=== PATIENT | male | born 1990 | race Caucasian/White ===

== ENCOUNTER 2016-09-02 07:20 | Emergency (ER) | payer OTHER | END 2016-09-02 08:45 | disposition home or self-care (01) | LOC: ER1 07:20 | DX: S02.5XXA Fracture of tooth (traumatic), initial encounter for closed fracture (principal); S01.511A Laceration without foreign body of lip, initial encounter; F17.200 Nicotine dependence, unspecified, uncomplicated; W18.39XA Other fall on same level, initial encounter; Y92.89 Other specified places as the place of occurrence of the external cause | CPT/HCPCS: 70150; 99283 ==